=== PATIENT | male | born 1995 | race Caucasian/White ===

== ENCOUNTER 2016-07-13 20:42 | Emergency (ER) | payer OTHER ==
[2016-07-13 20:55] VITALS: TEMP 98.2
[2016-07-13] MEDS ORDERED: OXYCODONE/APAP 5/325 TAB ONE (21:04)
--- NOTE | 2016-07-13 21:21 | EDPHY ---
H & P Time Seen by Provider: 07/13/16 20:57 HPI/ROS: CHIEF COMPLAINT: eye laceration HISTORY OF PRESENT ILLNESS: This is a 20-year-old male presenting to the emergency department complaining laceration to lower lid of the right eye. Patient states he was changing his bike tire 30 minutes prior to arrival when he went to pull the tire and the tire snapped back patient hitting himself in the eye with his hand and fingernail. Denies any blurred vision REVIEW OF SYSTEMS: Constitutional: No fever, no chills. Eyes: Right eye lower lid laceration. No blurred vision ENT: No sore throat. Cardiovascular: No chest pain, no palpitations. Respiratory: No cough, no shortness of breath. Gastrointestinal: No abdominal pain, no vomiting. Musculoskeletal: No back pain. No neck pain Skin: No rashes. Neurological: No headache. Smoking Status: Never smoked Physical Exam: General Appearance: Alert, no distress. Eyes: PERRLA. Right lower eyelid extensive tear of tissue, no globe trauma noted ENT, Mouth: Mucous membranes moist. Respiratory: There are no retractions, nonlabored respiratory effort Cardiovascular: Regular rate and rhythm. Gastrointestinal: Abdomen is soft and nontender, no masses, bowel sounds normal. Neurological: No focal deficits Skin: Warm and dry, no rashes. Musculoskeletal: Vertebral cervical spine nontender on palpation. Full range of motion Extremities: symmetrical, full range of motion. Psychiatric: Patient is oriented X 3, there is no agitation. Constitutional: Initial Vital Signs Temperature (C) 36.8 C 07/13/16 20:52 Heart Rate 80 07/13/16 20:52 Respiratory Rate 20 07/13/16 20:52 Blood Pressure 130/91 H 07/13/16 20:52 O2 Sat (%) 98 07/13/16 20:52 O2 Delivery Mode Room Air Allergies/Adverse Reactions: No Known Allergies Allergy (Unverified 07/13/16 20:55) Home Medications: Medication Instructions Recorded NK [No Known Home Meds] 07/13/16 Medical Decision Making ED Course/Re-evaluation: Discussed the plan of care: The pain medicine given. Consult with ophtho for laceration repair 2134: Spoke with Dr. Webb with Ophthalmology he will be in to evaluate patient 2199: Dr. Webb at patient bedside, patient will be discharged from the ER and walked over to Dr. Webb office for high laceration repair. Patient agreed with plan and will follow up with his office. Discharge---> stable, discussed all discharge instructions Differential Diagnosis: Other differential diagnosis considered but not limited to foreign body, globe trauma and corneal laceration Departure - Departure Disposition: Home, Routine, Self-Care Clinical Impression: Eyelid laceration, right Qualifiers: Encounter type: initial encounter Qualified Code(s): S01.111A - Laceration without foreign body of right eyelid and periocular area, initial encounter Condition: Good Instructions: Laceration (ED), Facial Laceration (ED) Additional Instructions: Discussed discharge instructions with patient 1. Dr. Webb with Ophthalmology at patient's bedside, patient will be discharged from the ER now and go to his office for laceration repair after discharge 2. Patient will follow up with Dr. Webb office next week 3. Instructions on wound care was given, and suture care Referrals: NONE *PRIMARY CARE P,. [Primary Care Provider] - As per Instructions [facility],. [Clinic] - As per Instructions
[2016-07-13 22:33] VITALS: BP 132/70; PULSE 88; RESP 16; O2SAT 94
== END 2016-07-13 22:00 | disposition home or self-care (01) ==
DX: S01.111A Laceration without foreign body of right eyelid and periocular area, initial encounter (principal); W22.8XXA Striking against or struck by other objects, initial encounter

== ENCOUNTER 2018-05-25 20:56 | Emergency (ER) | payer OTHER ==
--- NOTE | 2018-05-25 21:15 | EDPHY ---
General Time Seen by Provider: 05/25/18 21:15 Narrative: CLINICAL IMPRESSION: Dysuria ASSESSMENT/PLAN: Patient is a 22-year-old male with no significant medical history who presents to the emergency department with a single episode of tingling sensation with urination prior to arrival. Patient is afebrile, he is not toxic appearing and in no acute distress. His abdomen is soft with no tenderness to palpation, no flank tenderness. Urinalysis revealed no evidence of leukocytosis or nitrates, there was also no blood noted. GC was sent and is pending. Patient is with 1 partner, he verbalizes no concern for STI. Discussed prophylactically treating in light of delayed results, he wishes to wait for the results; no antibiotics given in the emergency department. History and physical examination is most consistent with a single episode of tingling with urination. It is unclear the exact etiology of this isolated event. Patient had no testicular tenderness or swelling to suggest torsion or epididymitis. His urine revealed no evidence of urinary tract infection; no RBC 's to suggest stone. Low suspicion for STI, awaiting results. The patient does not have a primary care provider, I have provided a referral for him. Conservative return precautions discussed-he will return for recurrent or worsening dysuria, hematuria, urinary retention, fever, abdominal pain or for any other concerning symptom. Patient verbalized understanding and he is in agreement with this plan. DIFFERENTIAL DX: Differential diagnosis including but not limited to urinary tract infection, STI , epididymitis, torsion ED COURSE: 2139: Case discussed with Dr. Sarabia CHIEF COMPLAINT: "Tingling sensation with urination" HPI: Patient is a 22-year-old male who presents to the emergency department with complaints of a single episode of tingling during urination. Patient denies any previous episodes similar. He reports this afternoon he had a single, isolated episode of a tingling sensation when he urinated. When he discussed this with his girlfriend, she said that she frequently gets urinary tract infections and that he should be evaluated. He denies any further dysuria, has not had any hematuria or increased frequency. He denies any fever, nausea, vomiting or abdominal pain. He also denies any flank pain. He denies any testicular pain or swelling. He is sexually active with 1 partner, no concern for STI. Denies any penile discharge, penile lesions or penile pain. PAST MEDICAL HISTORY: Denies Pertinent Past Surgical History: Denies Family History: Not contributory Social History: Occasional alcohol, denies illicit drug use or cigarette smoking ROS: A full 10 point review of systems was negative except for those mentioned in HPI. PHYSICAL EXAM: General Appearance: Alert, well-appearing, no acute distress. HENT: Normocephalic, atraumatic. External ears are normal. Nares are clear, mucosa is pink. Oropharynx is clear, mucosa is moist. Eyes: PERRLA, EOMI. Conjunctiva pink, no pallor or injection. Neck: Supple, nontender, no lymphadenopathy, no midline pain, FROM, no meningismus. Respiratory: There are no retractions, lungs are clear to auscultation. Cardiac: Regular rate and rhythm, no murmurs or gallops. Gastrointestinal: Abdomen is soft, nontender, bowel sounds normal, no masses/ hernia, no rigidity, guarding or focal peritoneal findings. No CVA tenderness bilaterally Skin: Warm, dry, no rashes, no nodules on palpation. MEDICAL DECISION MAKING: Patient was seen independently. Secondary supervising physician at time of evaluation was Dr. Sarabia, we discussed this case however he did not evaluate this patient. Diagnosis: Dysuria. New, requires workup Summary: See Assessment and Plan for summary of ED visit Clinical lab tests: ordered / reviewed. Independent visualization of images, tracing, or specimens: Yes. Decision to obtain medical records or history from someone other than the patient: No Review / Summarize previous medical records: Yes Discussed patient with another provider: Yes, Dr. Sarabia Patient Progress: Stable, discharge. - History Smoking Status: Never smoked - Objective Vital Signs: Initial Vital Signs Temperature (C) 36.6 C 05/25/18 21:01 Heart Rate 65 05/25/18 21:01 Blood Pressure 124/72 H 05/25/18 21:01 O2 Sat (%) 97 05/25/18 21:01 O2 Delivery Mode Room Air Allergies/Adverse Reactions: No Known Allergies Allergy (Unverified 05/25/18 21:00) Home Medications: Medication Instructions Recorded NK [No Known Home Meds] 07/13/16 Laboratory Results: 05/25/18 05/25/18 21:21 21:21 Urine Color RED Urine Appearance MODERATELY TURBID Urine pH 7.0 (5.0-7.5) Ur Specific [place] 1.019 (1.002-1.030) Urine Protein NEGATIVE (NEGATIVE) Urine Ketones NEGATIVE (NEGATIVE) Urine Blood NEGATIVE (NEGATIVE) Urine Nitrate NEGATIVE (NEGATIVE) Urine Bilirubin NEGATIVE (NEGATIVE) Urine Urobilinogen 2.0 EU H EU (0.2-1.0) Ur Leukocyte Esterase NEGATIVE (NEGATIVE) Urine Glucose NEGATIVE (NEGATIVE) C.trachomatis RNA (TMA) Pending N.gonorrhoeae RNA (TMA) Pending Departure - Departure Disposition: Home, Routine, Self-Care Clinical Impression: Dysuria Condition: Good Instructions: Dysuria (ED) Additional Instructions: DISCHARGE INSTRUCTIONS FROM YOUR DOCTOR Thank you for visiting our emergency department today. Please keep in mind that discharge from the emergency department does not mean that there is nothing wrong - it simply means that we have not identified an emergency condition that requires further evaluation or treatment in the hospital. You should always plan to follow up with primary care for re-evaluation of your condition in the next 2-3 days. Your GC test is still pending, as you did not get antibiotic therapy today, you will be called if your test is positive and will require antibiotic therapy. It is important you stay hydrated. Urinate regularly. Urinate after intercourse if sexually active. Return for increased or unmanageable pain, development of abdominal pain, groin pain, pelvic pain, back pain, flank pain, fever, chills, recurrent vomiting, vomiting blood or coffee grounds, diarrhea, constipation, bloody stool, black tarry stools, burning or pain with urination, bloody urine, inability to urinate , decreased urine output or other signs of dehydration, development of fever, chills, dizziness, weakness, fainting, difficulty breathing or swallowing, chest pain, coughing, coughing up blood, ankle swelling, or for any other new, worsening or worrisome symptoms. People present with illnesses and injuries in different ways, and it is always possible that we have missed something. You may always return for re-evaluation if symptoms worsen or if they are not improving or if you develop new/different symptoms. Again, thank you for choosing our emergency department. We hope that you feel better. Referrals: Sapna Mason MD [Medical Doctor] - As per Instructions (Please establish care with a primary care provider if you do not have 1. )
[2018-05-25 22:48] VITALS: BP 123/71
[2018-05-26 11:36] LABS: GC AMPLIFICATION GENPROBE NEGATIVE (NEGATIVE)
== END 2018-05-25 22:48 | disposition home or self-care (01) ==
DX: R30.0 Dysuria (principal)